=== PATIENT | male | born 1980 | race Asian ===

== ENCOUNTER → 2018-08-17 | Outpatient (CLI) | payer SELFPAY ==
--- NOTE | 2018-08-17 12:07 | XR ---
EXAMINATION TYPE: XR chest 2V DATE OF EXAM: 08/17/2018 COMPARISON: NONE TECHNIQUE: PA and lateral views submitted. HISTORY: TB screening FINDINGS: The lungs are clear and there is no pneumothorax, pleural effusion, or focal pneumonia. No pleural thickening or calcifications. No definite calcified granuloma. IMPRESSION: 1. No acute process.
== END | disposition home or self-care (01) ==
LOC: RADXRMAIN 11:37
PROVIDERS: ATTEND Family Medicine
DX: Z11.1 Encounter for screening for respiratory tuberculosis (principal)
CPT/HCPCS: 71046